=== PATIENT | male | born 1995 | race African-American/Black ===

== ENCOUNTER 2017-07-25 10:22 | Emergency (ER) | payer MEDICAID ==
[~2017-07-25] VITALS: Ht 175.3 cm; Wt 105.0 kg
[~2017-07-25 10:22] MED LIST: AMOX500T2 PO; AMOX875T PO
[2017-07-25 10:24] VITALS: BP 118/79; PULSE 65; RESP 16; TEMP 98.7; O2SAT 99
[2017-07-25] MEDS ORDERED: POLY10O EACH EYE (11:20)
--- NOTE | 2017-07-25 11:20 | PD ---
HPI Chief Complaint: Eye Problems/Injury Time Seen by Provider: 11:14 Travel History International Travel<30 days: No Contact w/Intl Traveler<30days: No Traveled to known affect area: No History of Present Illness HPI 21-year-old male presents emergency department for evaluation of bilateral eye irritation 3 days. Patient reports mild eyelid swelling and crusting at eyelashes each morning. He denies visual changes or eye pain. He denies trauma to the eyes. He does not or contact lenses. He denies fever or chills. Symptoms severity is mild. PFSH Past Medical History Medical History: Denies Significant Hx Tetanus Vaccination: < 5 Years Past Surgical History Surgical History: No Previous Surgery Social History Alcohol Use: No Tobacco Use: No Substance Use: No Allergies-Medications (Allergen,Severity, Reaction): Coded Allergies: No Known Allergies (Unverified , 07/25/17) Reported Meds & Prescriptions Reported Meds & Active Scripts Active Review of Systems Except as stated in HPI: all other systems reviewed are Neg Physical Exam Narrative GENERAL: Well-nourished, well-developed patient. SKIN: Focused skin assessment warm/dry. HEAD: Normocephalic. EYES: No scleral icterus. PERRL. Mild injection injection without drainage laterally. EOMs intact. Crusting noted at eyelashes NECK: Supple, trachea midline. No JVD or lymphadenopathy. Data Data Last Documented VS Vital Signs Date Time Temp Pulse Resp B/P (MAP) Pulse Ox O2 Delivery O2 Flow Rate FiO2 07/25/17 10:24 98.7 65 16 118/79 (92) 99 Room Air MDM Medical Decision Making Medical Screen Exam Complete: Yes Emergency Medical Condition: Yes Differential Diagnosis Viral Conjunctivitis versus bacterial conjunctivitis versus blepharitis Narrative Course 21-year-old male with chief complaint of bilateral eye irritation and mild eyelid swelling 3 days. On exam patient has what is consistent with conjunctivitis. Patient be treated with antibiotic eye drops and instructed to follow up PCP. Diagnosis Primary Impression: Conjunctivitis Qualified Codes: H10.9 - Unspecified conjunctivitis Referrals: [facility] Additional Instructions: Use the eyedrops as directed. Follow-up with the [facility]. Return to emergency department if new or worsening symptoms. Scripts Polymyxin B-Trimethoprim Opth Drops (Polytrim Opth Drops) 10,000-0.1 Unit/Ml-% Soln 1 DROP EACH EYE Q6HR for Mgmt Bacterial Infection, #1 BOTTLE 0 Refills Prov: Paradise Pastrana 07/25/17 Disposition: 01 DISCHARGE HOME Condition: Stable Paradise Pastrana Jul 25, 2017 11:20
== END 2017-07-25 11:33 | disposition home or self-care (01) ==
LOC: NEPK 10:22
DX: H10.9 Unspecified conjunctivitis (principal)
CPT/HCPCS: 99283